=== PATIENT | male | born 1985 | race Caucasian/White ===

== ENCOUNTER → 2021-01-04 | Outpatient (CLI) | payer OTHER ==
[~2021-01-04] MED LIST: IBUPROFEN400 MG PO; LEVAQUIN500 MG PO; NORCO 7.5-3251 EACH PO; Z-PAK
== END ==
LOC: MRI 07:41
PROVIDERS: ATTEND Family Medicine
DX: M25.562 Pain in left knee (principal); M25.662 Stiffness of left knee, not elsewhere classified

== ENCOUNTER → 2022-08-20 | Outpatient (CLI) | payer OTHER | LOC: MRI 07:50 | PROVIDERS: ATTEND Family Medicine | DX: S63.8X2A Sprain of other part of left wrist and hand, initial encounter (principal) ==

== ENCOUNTER → 2024-05-31 | Day surgery (SDC) | payer OTHER ==
[~2024-05-31] MED LIST changes: +FENTANYL CITRATE/PF 100MCG/2 ML INJ ONE; +GLUCAGON FOR INJ 1 MG VIAL ONE; +METOCLOPRAMIDE HCL 10 MG/2ML VIAL ONE; +MIDAZOLAM HCL 2 MG/2 ML VIAL ONE; +PROPOFOL IV EMULSION 50 ML IV ONE; +[UNRECOGNIZED DRUG - OTHER]
[2024-05-31] MEDS: LACTATED RINGER'S 1,000 ML ONE (11:16)
[2024-05-31 13:48] VITALS: TEMP 97.7
[2024-05-31 14:15] VITALS: BP 125/60; PULSE 58; RESP 16; O2SAT 99
[2024-05-31 15:07] LABS: CDIFF AG QUIK CHEK NEGATIVE (NEGATIVE); CDIFF TOX QUIK CHEK NEGATIVE (NEGATIVE); WBC,FECAL (FECAL LACTOFERRIN) NEGATIVE (NEGATIVE)
[2024-06-01 06:37] LABS: C-REACTIVE PROTEIN <1 mg/L (0-10)
[2024-06-03 13:13] LABS: ENDOMYSIAL ANTIBODIES, IGA Negative (Negative)
[2024-06-03 13:49] LABS: IMMUNOGLOBULIN A 381 mg/dL (90-386); TISSUE TRANSGLUTAMINASE IGA AB <2 U/mL (0-3)
== END | disposition home or self-care (01) ==
LOC: OR 10:43
PROVIDERS: ATTEND Internal Medicine Gastroenterology
DX: D64.89 Other specified anemias (principal); K29.70 Gastritis, unspecified, without bleeding; K52.9 Noninfective gastroenteritis and colitis, unspecified; K22.10 Ulcer of esophagus without bleeding; K31.89 Other diseases of stomach and duodenum; K57.30 Diverticulosis of large intestine without perforation or abscess without bleeding; K62.89 Other specified diseases of anus and rectum; K64.8 Other hemorrhoids; E66.01 Morbid (severe) obesity due to excess calories; Z71.89 Other specified counseling; F17.210 Nicotine dependence, cigarettes, uncomplicated; Z71.6 Tobacco abuse counseling; Z88.6 Allergy status to analgesic agent; Z68.30 Body mass index [BMI] 30.0-30.9, adult; Z71.3 Dietary counseling and surveillance
CPT/HCPCS: 43239; 45380; 82784; 83516; 83630; 83993; 86140; 86256; 87045; 87177; 87324; 87328; 87449; J1610; J2250; J2470; J2704; J2765; J3010; J7121; 45378